=== PATIENT | female | born 1945 | race Caucasian/White ===

== ENCOUNTER 2018-04-09 07:54 | Outpatient (CLI) | payer OTHER | END 2018-04-09 08:01 | disposition home or self-care (01) | LOC: RAD 07:54 | DX: M25.561 Pain in right knee (principal); M25.562 Pain in left knee ==

== ENCOUNTER 2018-04-12 08:11 | Outpatient (CLI) | payer OTHER | END 2018-04-12 08:15 | disposition home or self-care (01) | LOC: MRI 08:11 | DX: M25.562 Pain in left knee (principal) | CPT/HCPCS: 73721 ==

== ENCOUNTER 2018-05-01 11:58 | Outpatient (CLI) | payer OTHER | END 2018-05-01 15:26 | disposition home or self-care (01) | LOC: RAD 11:58 | DX: R07.89 Other chest pain (principal); Z01.818 Encounter for other preprocedural examination ==